=== PATIENT | female | born 1995 | race Caucasian/White ===

== ENCOUNTER 2024-01-31 00:20 | Emergency (ER) | payer OTHER ==
[~2024-01-31] VITALS: Ht 154.9 cm; Wt 72.0 kg
[2024-01-31 00:25] VITALS: O2SAT 98
[2024-01-31] MEDS: LORAZEPAM 1MG TABLET PO ONE (02:00)
[2024-01-31 02:32] LABS: HCG SCREEN NEGATIVE
[2024-01-31 06:41] VITALS: BP 91/48; PULSE 61; RESP 18; TEMP 36.66960; O2SAT 99
== END 2024-01-31 06:42 | disposition home or self-care (01) ==
LOC: ER 00:20
DX: S13.9XXA Sprain of joints and ligaments of unspecified parts of neck, initial encounter (principal); F41.9 Anxiety disorder, unspecified; J45.909 Unspecified asthma, uncomplicated; W01.0XXA Fall on same level from slipping, tripping and stumbling without subsequent striking against object, initial encounter; Y93.89 Activity, other specified; Y92.89 Other specified places as the place of occurrence of the external cause; Y99.8 Other external cause status
CPT/HCPCS: 84703; 70450; 72125; 99285; Z7610 ×2